=== PATIENT | female | born 2000 | race Caucasian/White ===

== ENCOUNTER 2022-12-04 15:50 | Inpatient (IN) | payer SELFPAY, OTHER ==
[2022-12-04] VITALS (94 sets, daily range): BP systolic 112–184; BP diastolic 64–111; PULSE 60–184; RESP 16; TEMP 36.6–37.1; O2SAT 83–100; BMI 32.1
[2022-12-04] MEDS: Lactated Ringers 1,000 ML 50 ML IV (16:55)
[2022-12-04 17:14] LABS: Absolute Lymphocyte Count 1.42 X10^3/uL (0.83-4.51); Absolute Neutrophil Count 11.9 X10^3/uL (2.0-7.7); Basophil# 0.03 X10^3/uL; Basophil% 0.2 % (0-1); Eosinophil# 0.04 X10^3/uL; Eosinophils% 0.3 % (0-5); Hematocrit 35.3 % (37-47); Hemoglobin 11.9 g/dL (12.0-15.0); Lymphocyte # 1.42 X10^3/ul (0.83-4.51); Lymphocyte % 9.3 % (19-41); Mean Corp Hgb Conc 33.7 g/dL (32-36); Mean Corpuscular Hgb 29.8 pg (27.0-32.0); Mean Corpuscular Volume 88.3 fL (81-99); Mean Platelet Vol. 10.2 fl (6.2-12.0); Monocyte# 1.64 X10^3/uL; Monocyte% 10.8 % (0-10); NRBC Flagged by Analyzer 0 % (0-5); Neutrophil # 11.94 X10^3/uL (2.7-7.7); Neutrophil % 78.5 % (47-70); POSITIVE DIFFERENTIAL YES; Platelet Count 220 K/mm3 (150-450); RBC Distribution Width CV 12.8 % (11.6-14.6); RBC Distribution Width SD 41.7 fl (35.1-43.9); White Blood Count 15.2 K/mm3 (4.4-11.0)
[2022-12-04 17:17] LABS: Differential Indicated SCAN CRITERIA MET
[2022-12-04 17:38] LABS: Differential Comment SCANNED
[2022-12-04] MEDS: Oxytocin 15 Units/NS 250ml 15 UNITS/250 ML IV.SOLN 2 UNITS IV (17:55)
[2022-12-04] MEDS: 0.9% Normal Saline Single 100 ML IV.SOLN. INTRA-UTER (17:55)
[2022-12-04 17:59] LABS: AST(SGOT) 35 U/L (15-37); Alanine Aminotransfer ALT/SGPT 48 U/L (13-56); Creatinine, Serum 0.54 mg/dL (0.55-1.02); EST Glomerular Filtration Rate 148 mL/min (>60); Est Glom Filt Rate - Afr Amer 179 mL/min (>60); Estimated Creatinine Clearance 122.27 ml/min
[2022-12-04 18:05] LABS: Mucous, Urine 0 SEEN /hpf (<or=2+)
[2022-12-04 18:17] LABS: Color, Urine Yellow (Yellow); Glucose, Dipstick Normal (Normal); Ketone-Dipstick Negative (Negative); Leukocyte Esterase-Dipstick 500 /ul (Negative); Nitrite-Dipstick Negative (Negative); Occult Blood-Urine 250 /ul (Negative); Protein-Dipstick 100 mg/dl (Negative); Urine Bilirubin Dipstick Negative (Negative); Urine Clarity Sl. Cloudy (Clear); Urine Urobilinogen Normal (Normal); Urine pH 6.5 (5.0 - 8.0)
[2022-12-04 18:24] LABS: Protein, Urine (Random) 174.6 mg/dL (<11.9); Protein:Creat Ratio 7462 mg/g CRE (0-200)
[2022-12-04] MEDS: Labetalol (Prefilled) 20 MG/4 ML IV (18:42)
[2022-12-04] MEDS: Magnesium Sulfate 4gm/100mL 4 GM/100 ML IV.SOLN. IV (18:47)
[2022-12-04 18:59] LABS: HIV - WCH Non-Reactive (Nonreactive); Rubella IgG Non-Reactive (Nonreactive); Syphilis Antibodies Non-reactive
[2022-12-04 19:06] LABS: Bacteria RARE /hpf (None Seen); Red Blood Cells-Urine 25-50 SEEN /hpf (0-5); Squamous Epithelial Cells - UA 0-5 SEEN /hpf (5-10); White Blood Cells 25-50 SEEN /hpf (0-5)
[2022-12-04 19:07] LABS: Amorphous Sediment 1+ URATE
[2022-12-04] MEDS: Magnesium Sulfate 20 GM/500 ML BAG IV (19:08)
[2022-12-04 20:54] LABS: Group B Strep DNA By PCR Negative (Negative); Internal Control PASS; Probe Check PASS; Specimen Processing Control PASS
[2022-12-04] MEDS: Labetalol 100 MG Tablet PO (21:07)
[2022-12-04] MEDS: LACTATED RINGERS 500 ML 999 ML IV (21:47)
[2022-12-04 22:08] LABS: Hepatitis B Surface Antigen Non-Reactive (Nonreactive); Hepatitis C Antibody Non-Reactive (Nonreactive)
[2022-12-04] MEDS: fentaNYL-bupivacaine (epidural) 100 ML BAG EPIDURAL (23:02)
[2022-12-05] VITALS (133 sets, daily range): BP systolic 106–152; BP diastolic 54–95; PULSE 70–106; RESP 14–18; TEMP 36.6–37.8; O2SAT 88–100
[2022-12-05] MEDS: fentaNYL-bupivacaine (epidural) 100 ML BAG EPIDURAL (03:16)
[2022-12-05] MEDS: Magnesium Sulfate 20 GM/500 ML BAG IV ×2 (04:43→14:16)
--- NOTE | 2022-12-05 05:20 | PLAC_PTH ---
PATIENT: LYNSEY CROWLEY LOC: [facility] U#:[id number] AGE/SX: ROOM: WP014 RE12/04/[address]: Dr. Jocelyne Adan MD : 2000 BED: 1 DIS: 12/06/2022 SPEC #: [id number] RECD: 12/07/22 08:45 STATUS: TIMOTHY COSTA #: [id number] VELASQUEZ: 12/05/22 05:[address]: Jocelyne Adan DEPT: SURGICAL PATHOLOGY RECD BY: Nicolle Montague Tissues: Placenta, NOS Procedures: Surgery Specimen Level V HEADER OPERATION: Delivery PRE-OP DIAGNOSIS: Delivery TISSUE SUBMITTED: Placenta MICROSCOPIC DIAGNOSIS Placenta: Placental disc - third trimester placenta (422 gm). - focal area of peripheral infarction (3.5 cm in greatest dimension). Membranes - circummarginate insertion. Umbilical cord - three blood vessels and no pathologic diagnosis. SJ: 12/08/2022 MICROSCOPIC DESCRIPTION Slides are reviewed. GROSS DESCRIPTION SPECIMEN: PLACENTA / CLINICAL INFORMATION: A. Weight: 3.555 kg B. Gestational Age: 37 weeks C. Sex: Boy PLACENTAL WEIGHT (POST FIXATION): 422 gm PLACENTAL DIMENSIONS: 16 x 15 x 3 cm PLACENTAL SHAPE: Usual ovoid PLACENTAL WEIGHT FOR GESTATIONAL AGE: Within 10-99th percentile. MEMBRANES - Present A. Insertion: 2 -3 cm away from the margins in 2/3rd circumference of the placenta. B. Site of rupture from edge: at the edge of the placental disc C. Color of membrane: Deleon-lombardi D. Abnormalities: None UMBILICAL CORD - Present A. Color: Deleon-lombardi B. Insertion: Marginal C. Length: 47 cm D. Diameter: 1.0cm E. Number of vessels: Three F. Abnormalities: None PLACENTAL DISC - Present A. Color of surface: Deleon-lombardi B. surface abnormalities: None C. Maternal cotyledons: Intact with minimal tears D. Attached retro placental clot: No clot E. Cut surface: Dark red and spongy F. Lesions: one deleon indurated lesion in the peripheral portion of placenta measuring 3.5 cm in greatest dimension. G. Separate clot: Absent SECTIONS SUBMITTED: 1. Membrane roll 2. Cord, maternal end, insertion of membranes away from the margin. 3. Cord, end, insertion of membranes away from the margin 4. Placental disc, and maternal surfaces 5. Placental disc, and maternal surfaces 6. Placental disc, and maternal surfaces, lesion SJ: 12/07/22 TC:5 CPT: 24549
[2022-12-05] MEDS: Oxytocin 10 UNITS/ML Vial IM (05:26)
[2022-12-05] MEDS: miSOPROStol 200 MCG Tablet 1000 MCG RC (05:32)
[2022-12-05] MEDS: Carboprost Tromethamine 250 MCG/ML Ampul IM (05:39)
[2022-12-05] MEDS: Oxytocin 15 Units/NS 250ml 15 UNITS/250 ML IV.SOLN 83 UNITS IV (05:49)
--- NOTE | 2022-12-05 06:19 | PCM.HP.OB ---
HPI - General General Date of Admission: 12/04/22 HPI Narrative LYNSEY CROWLEY, is a 22 F who presents with elevated blood pressure and proteinuria, presenting from a nearby birthing center. she had severe edema and headache, 7.5g of protein in her urine. she had bps elevated 140-150 over 100s at the birthing center, this just started yesterday. Upon presentation her fundal height was low and her VICENTE was under 1 cm with oligohydramnios [facility] Medical History (Updated 12/05/22 @ 06:[address] Jocelyne Adan MD) Anemia affecting first Psychiatric disorder Home Medications ascorbate calcium (vitamin C) 500 mg tablet 500 mg PO DAILY supplement 12/04/22 [History Last Taken 12/03/22 05:00] docosahexaenoic acid 1 cap PO DAILY 12/04/22 [History Last Taken 12/03/22 05:00] hemaplex 1 tab PO DAILY anemia 12/04/22 [History Last Taken 12/03/22 05:00] magnesium oxide 400 mg (241.3 mg magnesium) tablet 400 mg PO DAILY supplement 12/04/22 [History Last Taken 12/03/22 05:00] omega-3 fatty acids 1 tab PO DAILY supplement 12/04/22 [History Last Taken 12/03/22 05:00] thiamine HCl (vitamin B1) 100 mg tablet 100 mg PO DAILY supplement 12/04/22 [History Last Taken 12/03/22 05:00] Allergy/AdvReac Type Severity Reaction Status Date / Time No Known Allergies Allergy Verified 12/04/22 17:05 Family History (Updated 12/04/22 @ 17:24 by Mouna Pérez) Grandmother Diabetes Grandfather Hypertension Sister Heart disease Surgical History no surgical history Social History Smoking Status: Never smoker History Elective abortions Hx Para 0 Spontaneous abortions Hx # Term Pregnancies Ectopic pregnancies Hx # Pregnancies Multiple births # of living children NST FHR Rate Baby A Baseline: 130 Variability:: Moderate Accelerations:: 15 x 15 Decelerations:: None NST Reactive:: Yes FHR Category:: Category I Uterine Activity:: irregular ROS Constitutional Constitutional: Reports systems reviewed and no addt'l complaints, except as documented Eyes Eyes: Denies change in vision ENT HEENT: Reports systems reviewed and no addt'l complaints, except as documented; Denies headache(s) Cardiovascular Cardiovascular: Reports systems reviewed and no addt'l complaints, except as documented; Denies chest pain or dyspnea Respiratory/Chest Respiratory/Chest: Reports systems reviewed and no addt'l complaints, except as documented Gastrointestinal Gastrointestinal: Reports systems reviewed and no addt'l complaints, except as documented; Denies abdominal pain Genitourinary Genitourinary: Reports systems reviewed and no addt'l complaints, except as documented, contractions Details: present (irregular) and movement Details: present; Denies dysuria or genital lesions Musculoskeletal Musculoskeletal: Reports systems reviewed and no addt'l complaints, except as documented Neurologic Neurologic: Reports systems reviewed and no addt'l complaints, except as documented Endocrine Endocrinology: Reports systems reviewed and no addt'l complaints, except as documented Vital Signs Vital Signs Vital Signs: 12/04/22 17:06 12/04/22 17:06 12/04/22 17:21 Temperature Temperature Source Pulse Rate 60 Respiratory Rate Respiratory Effort Respiratory Depth Respiratory Pattern Blood Pressure 147/97 H 154/100 H Blood Pressure Mean BP Systolic 147 154 BP Diastolic 97 100 Blood Pressure Source Blood Pressure Position Blood Pressure Location Pulse Ox Oxygen Delivery Method 12/04/22 17:21 12/04/22 17:21 12/04/22 17:21 Temperature Temperature Source Temporal Pulse Rate 60 Respiratory Rate Respiratory Effort Respiratory Depth Respiratory Pattern Blood Pressure Blood Pressure Mean BP Systolic BP Diastolic Blood Pressure Source Blood Pressure Position Blood Pressure Location Pulse Ox 98 Oxygen Delivery Method 12/04/22 17:21 12/04/22 17:53 12/04/22 17:53 Temperature 98.1 F Temperature Source Pulse Rate 67 Respiratory Rate Respiratory Effort Respiratory Depth Respiratory Pattern Blood Pressure 184/111 H Blood Pressure Mean BP Systolic 184 BP Diastolic 111 Blood Pressure Source Blood Pressure Position Blood Pressure Location Pulse Ox Oxygen Delivery Method 12/04/22 18:06 12/04/22 18:06 12/04/22 18:22 Temperature Temperature Source Pulse Rate 63 Respiratory Rate Respiratory Effort Respiratory Depth Respiratory Pattern Blood Pressure 172/98 H 167/94 H Blood Pressure Mean BP Systolic 172 167 BP Diastolic 98 94 Blood Pressure Source Blood Pressure Position Blood Pressure Location Pulse Ox Oxygen Delivery Method 12/04/22 18:22 12/04/22 18:37 12/04/22 18:37 Temperature Temperature Source Pulse Rate 66 71 Respiratory Rate Respiratory Effort Respiratory Depth Respiratory Pattern Blood Pressure 168/97 H Blood Pressure Mean BP Systolic 168 BP Diastolic 97 Blood Pressure Source Blood Pressure Position Blood Pressure Location Pulse Ox Oxygen Delivery Method 12/04/22 18:55 12/04/22 18:55 12/04/22 18:58 Temperature Temperature Source Pulse Rate 77 Respiratory Rate Respiratory Effort Respiratory Depth Respiratory Pattern Blood Pressure 139/84 H Blood Pressure Mean BP Systolic 139 BP Diastolic 84 Blood Pressure Source Blood Pressure Position Blood Pressure Location Pulse Ox 98 Oxygen Delivery Method 12/04/22 18:58 12/04/22 19:00 12/04/22 19:00 Temperature Temperature Source Pulse Rate 82 81 Respiratory Rate Respiratory Effort Respiratory Depth Respiratory Pattern Blood Pressure Blood Pressure Mean BP Systolic BP Diastolic Blood Pressure Source Blood Pressure Position Blood Pressure Location Pulse Ox 98 Oxygen Delivery Method 12/04/22 19:05 12/04/22 19:05 12/04/22 19:07 Temperature Temperature Source Pulse Rate 77 Respiratory Rate Respiratory Effort Respiratory Depth Respiratory Pattern Blood Pressure 127/73 H Blood Pressure Mean BP Systolic 127 BP Diastolic 73 Blood Pressure Source Blood Pressure Position Blood Pressure Location Pulse Ox 98 Oxygen Delivery Method 12/04/22 19:07 12/04/22 19:10 12/04/22 19:10 Temperature Temperature Source Pulse Rate 71 78 Respiratory Rate Respiratory Effort Respiratory Depth Respiratory Pattern Blood Pressure Blood Pressure Mean BP Systolic BP Diastolic Blood Pressure Source Blood Pressure Position Blood Pressure Location Pulse Ox 98 Oxygen Delivery Method 12/04/22 19:15 12/04/22 19:15 12/04/22 19:19 Temperature Temperature Source Pulse Rate 79 Respiratory Rate Respiratory Effort Respiratory Depth Respiratory Pattern Blood Pressure 136/80 H Blood Pressure Mean BP Systolic 136 BP Diastolic 80 Blood Pressure Source Blood Pressure Position Blood Pressure Location Pulse Ox 98 Oxygen Delivery Method 12/04/22 19:19 12/04/22 19:20 12/04/22 19:20 Temperature Temperature Source Pulse Rate 76 77 Respiratory Rate Respiratory Effort Respiratory Depth Respiratory Pattern Blood Pressure Blood Pressure Mean BP Systolic BP Diastolic Blood Pressure Source Blood Pressure Position Blood Pressure Location Pulse Ox 98 Oxygen Delivery Method 12/04/22 19:25 12/04/22 19:25 12/04/22 19:27 Temperature Temperature Source Pulse Rate 77 Respiratory Rate Respiratory Effort Respiratory Depth Respiratory Pattern Blood Pressure 130/80 H Blood Pressure Mean BP Systolic 130 BP Diastolic 80 Blood Pressure Source Blood Pressure Position Blood Pressure Location Pulse Ox 98 Oxygen Delivery Method 12/04/22 19:27 12/04/22 19:30 12/04/22 19:30 Temperature Temperature Source Pulse Rate 75 78 Respiratory Rate Respiratory Effort Respiratory Depth Respiratory Pattern Blood Pressure Blood Pressure Mean BP Systolic BP Diastolic Blood Pressure Source Blood Pressure Position Blood Pressure Location Pulse Ox 98 Oxygen Delivery Method 12/04/22 19:35 12/04/22 19:35 12/04/22 19:38 Temperature Temperature Source Pulse Rate 79 Respiratory Rate Respiratory Effort Respiratory Depth Respiratory Pattern Blood Pressure 141/82 H Blood Pressure Mean BP Systolic 141 BP Diastolic 82 Blood Pressure Source Blood Pressure Position Blood Pressure Location Pulse Ox 98 Oxygen Delivery Method 12/04/22 19:38 12/04/22 19:38 12/04/22 19:38 Temperature Temperature Source Pulse Rate 75 74 Respiratory Rate Respiratory Effort Respiratory Depth Respiratory Pattern Blood Pressure 134/83 H Blood Pressure Mean BP Systolic 134 BP Diastolic 83 Blood Pressure Source Blood Pressure Position Blood Pressure Location Pulse Ox Oxygen Delivery Method 12/04/22 19:40 12/04/22 19:40 12/04/22 19:50 Temperature Temperature Source Pulse Rate 79 Respiratory Rate Respiratory Effort Respiratory Depth Respiratory Pattern Blood Pressure 153/97 H Blood Pressure Mean BP Systolic 153 BP Diastolic 97 Blood Pressure Source Blood Pressure Position Blood Pressure Location Pulse Ox 98 Oxygen Delivery Method 12/04/22 19:50 12/04/22 19:53 12/04/22 19:53 Temperature Temperature Source Pulse Rate 75 71 Respiratory Rate Respiratory Effort Respiratory Depth Respiratory Pattern Blood Pressure Blood Pressure Mean BP Systolic BP Diastolic Blood Pressure Source Blood Pressure Position Blood Pressure Location Pulse Ox 98 Oxygen Delivery Method 12/04/22 19:58 12/04/22 19:58 12/04/22 20:03 Temperature Temperature Source Pulse Rate 76 77 Respiratory Rate Respiratory Effort Respiratory Depth Respiratory Pattern Blood Pressure Blood Pressure Mean BP Systolic BP Diastolic Blood Pressure Source Blood Pressure Position Blood Pressure Location Pulse Ox 98 Oxygen Delivery Method 12/04/22 20:03 12/04/22 20:27 12/04/22 20:27 Temperature Temperature Source Pulse Rate 72 Respiratory Rate Respiratory Effort Respiratory Depth Respiratory Pattern Blood Pressure 133/82 H Blood Pressure Mean BP Systolic 133 BP Diastolic 82 Blood Pressure Source Blood Pressure Position Blood Pressure Location Pulse Ox 98 Oxygen Delivery Method 12/04/22 20:27 12/04/22 20:29 12/04/22 20:29 Temperature Temperature Source Temporal Pulse Rate 78 Respiratory Rate Respiratory Effort Respiratory Depth Respiratory Pattern Blood Pressure Blood Pressure Mean BP Systolic BP Diastolic Blood Pressure Source Blood Pressure Position Blood Pressure Location Pulse Ox 99 Oxygen Delivery Method 12/04/22 20:27 12/04/22 20:34 12/04/22 20:34 Temperature 98.7 F Temperature Source Pulse Rate 74 Respiratory Rate Respiratory Effort Respiratory Depth Respiratory Pattern Blood Pressure Blood Pressure Mean BP Systolic BP Diastolic Blood Pressure Source Blood Pressure Position Blood Pressure Location Pulse Ox 87 Oxygen Delivery Method 12/04/22 20:39 12/04/22 20:39 12/04/22 20:40 Temperature Temperature Source Pulse Rate 74 74 Respiratory Rate Respiratory Effort Respiratory Depth Respiratory Pattern Blood Pressure Blood Pressure Mean BP Systolic BP Diastolic Blood Pressure Source Blood Pressure Position Blood Pressure Location Pulse Ox 100 Oxygen Delivery Method 12/04/22 20:40 12/04/22 20:44 12/04/22 20:44 Temperature Temperature Source Pulse Rate 74 Respiratory Rate Respiratory Effort Respiratory Depth Respiratory Pattern Blood Pressure Blood Pressure Mean BP Systolic BP Diastolic Blood Pressure Source Blood Pressure Position Blood Pressure Location Pulse Ox 85 100 Oxygen Delivery Method 12/04/22 20:49 12/04/22 20:49 12/04/22 20:53 Temperature Temperature Source Pulse Rate 74 76 Respiratory Rate Respiratory Effort Respiratory Depth Respiratory Pattern Blood Pressure Blood Pressure Mean BP Systolic BP Diastolic Blood Pressure Source Blood Pressure Position Blood Pressure Location Pulse Ox 100 Oxygen Delivery Method 12/04/22 20:53 12/04/22 20:54 12/04/22 20:54 Temperature Temperature Source Pulse Rate 184 H Respiratory Rate Respiratory Effort Respiratory Depth Respiratory Pattern Blood Pressure Blood Pressure Mean BP Systolic BP Diastolic Blood Pressure Source Blood Pressure Position Blood Pressure Location Pulse Ox 89 83 Oxygen Delivery Method 12/04/22 20:59 12/04/22 20:59 12/04/22 21:05 Temperature Temperature Source Pulse Rate 75 73 Respiratory Rate Respiratory Effort Respiratory Depth Respiratory Pattern Blood Pressure Blood Pressure Mean BP Systolic BP Diastolic Blood Pressure Source Blood Pressure Position Blood Pressure Location Pulse Ox 99 Oxygen Delivery Method 12/04/22 21:05 12/04/22 21:07 12/04/22 21:07 Temperature Temperature Source Pulse Rate 73 Respiratory Rate Respiratory Effort Respiratory Depth Respiratory Pattern Blood Pressure 136/88 H Blood Pressure Mean BP Systolic 136 BP Diastolic 88 Blood Pressure Source Blood Pressure Position Blood Pressure Location Pulse Ox 99 Oxygen Delivery Method 12/04/22 21:11 12/04/22 21:11 12/04/22 21:15 Temperature Temperature Source Pulse Rate 72 80 Respiratory Rate Respiratory Effort Respiratory Depth Respiratory Pattern Blood Pressure Blood Pressure Mean BP Systolic BP Diastolic Blood Pressure Source Blood Pressure Position Blood Pressure Location Pulse Ox 89 Oxygen Delivery Method 12/04/22 21:15 12/04/22 21:18 12/04/22 21:18 Temperature Temperature Source Pulse Rate 77 Respiratory Rate Respiratory Effort Respiratory Depth Respiratory Pattern Blood Pressure Blood Pressure Mean BP Systolic BP Diastolic Blood Pressure Source Blood Pressure Position Blood Pressure Location Pulse Ox 99 88 Oxygen Delivery Method 12/04/22 21:20 12/04/22 21:20 12/04/22 21:24 Temperature Temperature Source Pulse Rate 73 Respiratory Rate Respiratory Effort Respiratory Depth Respiratory Pattern Blood Pressure 143/91 H Blood Pressure Mean BP Systolic 143 BP Diastolic 91 Blood Pressure Source Blood Pressure Position Blood Pressure Location Pulse Ox 100 Oxygen Delivery Method 12/04/22 21:24 12/04/22 21:25 12/04/22 21:25 Temperature Temperature Source Pulse Rate 71 79 Respiratory Rate Respiratory Effort Respiratory Depth Respiratory Pattern Blood Pressure Blood Pressure Mean BP Systolic BP Diastolic Blood Pressure Source Blood Pressure Position Blood Pressure Location Pulse Ox 99 Oxygen Delivery Method 12/04/22 21:30 12/04/22 21:30 12/04/22 21:35 Temperature Temperature Source Pulse Rate 74 74 Respiratory Rate Respiratory Effort Respiratory Depth Respiratory Pattern Blood Pressure Blood Pressure Mean BP Systolic BP Diastolic Blood Pressure Source Blood Pressure Position Blood Pressure Location Pulse Ox 98 Oxygen Delivery Method 12/04/22 21:35 12/04/22 21:36 12/04/22 21:36 Temperature Temperature Source Pulse Rate 79 Respiratory Rate Respiratory Effort Respiratory Depth Respiratory Pattern Blood Pressure Blood Pressure Mean BP Systolic BP Diastolic Blood Pressure Source Blood Pressure Position Blood Pressure Location Pulse Ox 100 83 Oxygen Delivery Method 12/04/22 21:40 12/04/22 21:40 12/04/22 21:42 Temperature Temperature Source Pulse Rate 80 84 Respiratory Rate Respiratory Effort Respiratory Depth Respiratory Pattern Blood Pressure Blood Pressure Mean BP Systolic BP Diastolic Blood Pressure Source Blood Pressure Position Blood Pressure Location Pulse Ox 100 Oxygen Delivery Method 12/04/22 21:42 12/04/22 21:45 12/04/22 21:45 Temperature Temperature Source Pulse Rate 76 Respiratory Rate Respiratory Effort Respiratory Depth Respiratory Pattern Blood Pressure Blood Pressure Mean BP Systolic BP Diastolic Blood Pressure Source Blood Pressure Position Blood Pressure Location Pulse Ox 91 100 Oxygen Delivery Method 12/04/22 21:49 12/04/22 21:49 12/04/22 21:50 Temperature Temperature Source Pulse Rate 77 77 Respiratory Rate Respiratory Effort Respiratory Depth Respiratory Pattern Blood Pressure Blood Pressure Mean BP Systolic BP Diastolic Blood Pressure Source Blood Pressure Position Blood Pressure Location Pulse Ox 87 Oxygen Delivery Method 12/04/22 21:50 12/04/22 21:55 12/04/22 21:55 Temperature Temperature Source Pulse Rate 78 Respiratory Rate Respiratory Effort Respiratory Depth Respiratory Pattern Blood Pressure Blood Pressure Mean BP Systolic BP Diastolic Blood Pressure Source Blood Pressure Position Blood Pressure Location Pulse Ox 99 96 Oxygen Delivery Method 12/04/22 21:58 12/04/22 21:58 12/04/22 22:00 Temperature Temperature Source Pulse Rate 80 78 Respiratory Rate Respiratory Effort Respiratory Depth Respiratory Pattern Blood Pressure Blood Pressure Mean BP Systolic BP Diastolic Blood Pressure Source Blood Pressure Position Blood Pressure Location Pulse Ox 92 Oxygen Delivery Method 12/04/22 22:00 12/04/22 22:05 12/04/22 22:05 Temperature Temperature Source Pulse Rate 79 Respiratory Rate Respiratory Effort Respiratory Depth Respiratory Pattern Blood Pressure Blood Pressure Mean BP Systolic BP Diastolic Blood Pressure Source Blood Pressure Position Blood Pressure Location Pulse Ox 99 98 Oxygen Delivery Method 12/04/22 22:06 12/04/22 22:06 12/04/22 22:10 Temperature Temperature Source Pulse Rate 74 76 Respiratory Rate Respiratory Effort Respiratory Depth Respiratory Pattern Blood Pressure Blood Pressure Mean BP Systolic BP Diastolic Blood Pressure Source Blood Pressure Position Blood Pressure Location Pulse Ox 90 Oxygen Delivery Method 12/04/22 22:10 12/04/22 22:15 12/04/22 22:15 Temperature Temperature Source Pulse Rate 73 Respiratory Rate Respiratory Effort Respiratory Depth Respiratory Pattern Blood Pressure Blood Pressure Mean BP Systolic BP Diastolic Blood Pressure Source Blood Pressure Position Blood Pressure Location Pulse Ox 97 98 Oxygen Delivery Method 12/04/22 22:20 12/04/22 22:20 12/04/22 22:23 Temperature Temperature Source Pulse Rate 75 78 Respiratory Rate Respiratory Effort Respiratory Depth Respiratory Pattern Blood Pressure Blood Pressure Mean BP Systolic BP Diastolic Blood Pressure Source Blood Pressure Position Blood Pressure Location Pulse Ox 99 Oxygen Delivery Method 12/04/22 22:23 12/04/22 22:25 12/04/22 22:25 Temperature Temperature Source Pulse Rate 75 Respiratory Rate Respiratory Effort Respiratory Depth Respiratory Pattern Blood Pressure 157/96 H Blood Pressure Mean BP Systolic 157 BP Diastolic 96 Blood Pressure Source Blood Pressure Position Blood Pressure Location Pulse Ox 90 Oxygen Delivery Method 12/04/22 22:25 12/04/22 22:30 12/04/22 22:30 Temperature Temperature Source Pulse Rate 80 Respiratory Rate Respiratory Effort Respiratory Depth Respiratory Pattern Blood Pressure Blood Pressure Mean BP Systolic BP Diastolic Blood Pressure Source Blood Pressure Position Blood Pressure Location Pulse Ox 98 99 Oxygen Delivery Method 12/04/22 22:39 12/04/22 22:39 12/04/22 22:41 Temperature Temperature Source Pulse Rate 86 Respiratory Rate Respiratory Effort Respiratory Depth Respiratory Pattern Blood Pressure 134/86 H Blood Pressure Mean BP Systolic 134 BP Diastolic 86 Blood Pressure Source Blood Pressure Position Blood Pressure Location Pulse Ox 98 Oxygen Delivery Method 12/04/22 22:41 12/04/22 22:44 12/04/22 22:44 Temperature Temperature Source Pulse Rate 78 85 Respiratory Rate Respiratory Effort Respiratory Depth Respiratory Pattern Blood Pressure Blood Pressure Mean BP Systolic BP Diastolic Blood Pressure Source Blood Pressure Position Blood Pressure Location Pulse Ox 98 Oxygen Delivery Method 12/04/22 22:47 12/04/22 22:47 12/04/22 22:49 Temperature Temperature Source Pulse Rate 84 85 Respiratory Rate Respiratory Effort Respiratory Depth Respiratory Pattern Blood Pressure 146/90 H Blood Pressure Mean BP Systolic 146 BP Diastolic 90 Blood Pressure Source Blood Pressure Position Blood Pressure Location Pulse Ox Oxygen Delivery Method 12/04/22 22:49 12/04/22 22:52 12/04/22 22:52 Temperature Temperature Source Pulse Rate 82 Respiratory Rate Respiratory Effort Respiratory Depth Respiratory Pattern Blood Pressure 134/87 H Blood Pressure Mean BP Systolic 134 BP Diastolic 87 Blood Pressure Source Blood Pressure Position Blood Pressure Location Pulse Ox 98 Oxygen Delivery Method 12/04/22 22:54 12/04/22 22:54 12/04/22 22:57 Temperature Temperature Source Pulse Rate 91 Respiratory Rate Respiratory Effort Respiratory Depth Respiratory Pattern Blood Pressure 137/90 H Blood Pressure Mean BP Systolic 137 BP Diastolic 90 Blood Pressure Source Blood Pressure Position Blood Pressure Location Pulse Ox 99 Oxygen Delivery Method 12/04/22 22:57 12/04/22 22:59 12/04/22 22:59 Temperature Temperature Source Pulse Rate 83 84 Respiratory Rate Respiratory Effort Respiratory Depth Respiratory Pattern Blood Pressure Blood Pressure Mean BP Systolic BP Diastolic Blood Pressure Source Blood Pressure Position Blood Pressure Location Pulse Ox 95 Oxygen Delivery Method 12/04/22 23:02 12/04/22 23:02 12/04/22 23:04 Temperature Temperature Source Pulse Rate 73 74 Respiratory Rate Respiratory Effort Respiratory Depth Respiratory Pattern Blood Pressure 134/74 H Blood Pressure Mean BP Systolic 134 BP Diastolic 74 Blood Pressure Source Blood Pressure Position Blood Pressure Location Pulse Ox Oxygen Delivery Method 12/04/22 23:04 12/04/22 23:06 12/04/22 23:06 Temperature Temperature Source Pulse Rate 75 Respiratory Rate Respiratory Effort Respiratory Depth Respiratory Pattern Blood Pressure 123/68 H Blood Pressure Mean BP Systolic 123 BP Diastolic 68 Blood Pressure Source Blood Pressure Position Blood Pressure Location Pulse Ox 98 Oxygen Delivery Method 12/04/22 23:09 12/04/22 23:09 12/04/22 23:12 Temperature Temperature Source Pulse Rate 78 Respiratory Rate Respiratory Effort Respiratory Depth Respiratory Pattern Blood Pressure 112/66 Blood Pressure Mean BP Systolic 112 BP Diastolic 66 Blood Pressure Source Blood Pressure Position Blood Pressure Location Pulse Ox 98 Oxygen Delivery Method 12/04/22 23:12 12/04/22 23:14 12/04/22 23:14 Temperature Temperature Source Pulse Rate 76 76 Respiratory Rate Respiratory Effort Respiratory Depth Respiratory Pattern Blood Pressure Blood Pressure Mean BP Systolic BP Diastolic Blood Pressure Source Blood Pressure Position Blood Pressure Location Pulse Ox 99 Oxygen Delivery Method 12/04/22 23:17 12/04/22 23:17 12/04/22 23:19 Temperature Temperature Source Pulse Rate 71 78 Respiratory Rate Respiratory Effort Respiratory Depth Respiratory Pattern Blood Pressure 113/64 Blood Pressure Mean BP Systolic 113 BP Diastolic 64 Blood Pressure Source Blood Pressure Position Blood Pressure Location Pulse Ox Oxygen Delivery Method 12/04/22 23:19 12/04/22 23:22 12/04/22 23:22 Temperature Temperature Source Pulse Rate 79 Respiratory Rate Respiratory Effort Respiratory Depth Respiratory Pattern Blood Pressure 120/69 Blood Pressure Mean BP Systolic 120 BP Diastolic 69 Blood Pressure Source Blood Pressure Position Blood Pressure Location Pulse Ox 97 Oxygen Delivery Method 12/04/22 23:23 12/04/22 23:23 12/04/22 23:24 Temperature Temperature Source Pulse Rate 75 76 Respiratory Rate Respiratory Effort Respiratory Depth Respiratory Pattern Blood Pressure 131/74 H Blood Pressure Mean BP Systolic 131 BP Diastolic 74 Blood Pressure Source Blood Pressure Position Blood Pressure Location Pulse Ox Oxygen Delivery Method 12/04/22 23:24 12/04/22 23:27 12/04/22 23:27 Temperature Temperature Source Pulse Rate 74 Respiratory Rate Respiratory Effort Respiratory Depth Respiratory Pattern Blood Pressure 126/75 H Blood Pressure Mean BP Systolic 126 BP Diastolic 75 Blood Pressure Source Blood Pressure Position Blood Pressure Location Pulse Ox 98 Oxygen Delivery Method 12/04/22 23:29 12/04/22 23:29 12/04/22 23:32 Temperature Temperature Source Pulse Rate 76 Respiratory Rate Respiratory Effort Respiratory Depth Respiratory Pattern Blood Pressure 127/74 H Blood Pressure Mean BP Systolic 127 BP Diastolic 74 Blood Pressure Source Blood Pressure Position Blood Pressure Location Pulse Ox 98 Oxygen Delivery Method 12/04/22 23:32 12/04/22 23:34 12/04/22 23:34 Temperature Temperature Source Pulse Rate 72 75 Respiratory Rate Respiratory Effort Respiratory Depth Respiratory Pattern Blood Pressure Blood Pressure Mean BP Systolic BP Diastolic Blood Pressure Source Blood Pressure Position Blood Pressure Location Pulse Ox 97 Oxygen Delivery Method 12/04/22 23:37 12/04/22 23:37 12/04/22 23:39 Temperature Temperature Source Pulse Rate 75 74 Respiratory Rate Respiratory Effort Respiratory Depth Respiratory Pattern Blood Pressure 130/75 H Blood Pressure Mean BP Systolic 130 BP Diastolic 75 Blood Pressure Source Blood Pressure Position Blood Pressure Location Pulse Ox Oxygen Delivery Method 12/04/22 23:39 12/04/22 23:44 12/04/22 23:44 Temperature Temperature Source Pulse Rate 74 Respiratory Rate Respiratory Effort Respiratory Depth Respiratory Pattern Blood Pressure Blood Pressure Mean BP Systolic BP Diastolic Blood Pressure Source Blood Pressure Position Blood Pressure Location Pulse Ox 97 98 Oxygen Delivery Method 12/04/22 23:49 12/04/22 23:49 12/04/22 23:54 Temperature Temperature Source Pulse Rate 76 77 Respiratory Rate Respiratory Effort Respiratory Depth Respiratory Pattern Blood Pressure Blood Pressure Mean BP Systolic BP Diastolic Blood Pressure Source Blood Pressure Position Blood Pressure Location Pulse Ox 97 Oxygen Delivery Method 12/04/22 23:54 12/04/22 23:59 12/04/22 23:59 Temperature Temperature Source Pulse Rate 76 Respiratory Rate Respiratory Effort Respiratory Depth Respiratory Pattern Blood Pressure Blood Pressure Mean BP Systolic BP Diastolic Blood Pressure Source Blood Pressure Position Blood Pressure Location Pulse Ox 96 96 Oxygen Delivery Method 12/05/22 00:00 12/05/22 00:00 12/05/22 00:04 Temperature Temperature Source Pulse Rate 77 75 Respiratory Rate Respiratory Effort Respiratory Depth Respiratory Pattern Blood Pressure 116/74 Blood Pressure Mean BP Systolic 116 BP Diastolic 74 Blood Pressure Source Blood Pressure Position Blood Pressure Location Pulse Ox Oxygen Delivery Method 12/05/22 00:04 12/05/22 00:04 12/05/22 00:04 Temperature Temperature Source Pulse Rate 75 Respiratory Rate Respiratory Effort Respiratory Depth Respiratory Pattern Blood Pressure Blood Pressure Mean BP Systolic BP Diastolic Blood Pressure Source Blood Pressure Position Blood Pressure Location Pulse Ox 96 96 Oxygen Delivery Method 12/05/22 00:09 12/05/22 00:09 12/05/22 00:09 Temperature Temperature Source Pulse Rate 77 77 Respiratory Rate Respiratory Effort Respiratory Depth Respiratory Pattern Blood Pressure Blood Pressure Mean BP Systolic BP Diastolic Blood Pressure Source Blood Pressure Position Blood Pressure Location Pulse Ox 95 Oxygen Delivery Method 12/05/22 00:09 12/05/22 00:11 12/05/22 00:11 Temperature Temperature Source Pulse Rate 76 76 Respiratory Rate Respiratory Effort Respiratory Depth Respiratory Pattern Blood Pressure Blood Pressure Mean BP Systolic BP Diastolic Blood Pressure Source Blood Pressure Position Blood Pressure Location Pulse Ox 95 Oxygen Delivery Method 12/05/22 00:11 12/05/22 00:11 12/05/22 00:14 Temperature Temperature Source Pulse Rate 76 Respiratory Rate Respiratory Effort Respiratory Depth Respiratory Pattern Blood Pressure Blood Pressure Mean BP Systolic BP Diastolic Blood Pressure Source Blood Pressure Position Blood Pressure Location Pulse Ox 94 94 Oxygen Delivery Method 12/05/22 00:14 12/05/22 00:14 12/05/22 00:14 Temperature Temperature Source Pulse Rate 76 Respiratory Rate Respiratory Effort Respiratory Depth Respiratory Pattern Blood Pressure Blood Pressure Mean BP Systolic BP Diastolic Blood Pressure Source Blood Pressure Position Blood Pressure Location Pulse Ox 95 95 Oxygen Delivery Method 12/05/22 00:17 12/05/22 00:17 12/05/22 00:17 Temperature Temperature Source Pulse Rate 76 76 Respiratory Rate Respiratory Effort Respiratory Depth Respiratory Pattern Blood Pressure Blood Pressure Mean BP Systolic BP Diastolic Blood Pressure Source Blood Pressure Position Blood Pressure Location Pulse Ox 94 Oxygen Delivery Method 12/05/22 00:17 12/05/22 00:19 12/05/22 00:19 Temperature Temperature Source Pulse Rate 76 76 Respiratory Rate Respiratory Effort Respiratory Depth Respiratory Pattern Blood Pressure Blood Pressure Mean BP Systolic BP Diastolic Blood Pressure Source Blood Pressure Position Blood Pressure Location Pulse Ox 94 Oxygen Delivery Method 12/05/22 00:19 12/05/22 00:19 12/05/22 00:24 Temperature Temperature Source Pulse Rate 77 Respiratory Rate Respiratory Effort Respiratory Depth Respiratory Pattern Blood Pressure Blood Pressure Mean BP Systolic BP Diastolic Blood Pressure Source Blood Pressure Position Blood Pressure Location Pulse Ox 94 94 Oxygen Delivery Method 12/05/22 00:24 12/05/22 00:24 12/05/22 00:24 Temperature Temperature Source Pulse Rate 77 Respiratory Rate Respiratory Effort Respiratory Depth Respiratory Pattern Blood Pressure Blood Pressure Mean BP Systolic BP Diastolic Blood Pressure Source Blood Pressure Position Blood Pressure Location Pulse Ox 94 94 Oxygen Delivery Method 12/05/22 00:29 12/05/22 00:29 12/05/22 00:29 Temperature Temperature Source Pulse Rate 76 76 Respiratory Rate Respiratory Effort Respiratory Depth Respiratory Pattern Blood Pressure Blood Pressure Mean BP Systolic BP Diastolic Blood Pressure Source Blood Pressure Position Blood Pressure Location Pulse Ox 94 Oxygen Delivery Method 12/05/22 00:29 12/05/22 00:34 12/05/22 00:34 Temperature Temperature Source Pulse Rate 76 76 Respiratory Rate Respiratory Effort Respiratory Depth Respiratory Pattern Blood Pressure Blood Pressure Mean BP Systolic BP Diastolic Blood Pressure Source Blood Pressure Position Blood Pressure Location Pulse Ox 94 Oxygen Delivery Method 12/05/22 00:34 12/05/22 00:34 12/05/22 00:39 Temperature Temperature Source Pulse Rate 76 Respiratory Rate Respiratory Effort Respiratory Depth Respiratory Pattern Blood Pressure Blood Pressure Mean BP Systolic BP Diastolic Blood Pressure Source Blood Pressure Position Blood Pressure Location Pulse Ox 94 94 Oxygen Delivery Method 12/05/22 00:39 12/05/22 00:39 12/05/22 00:39 Temperature Temperature Source Pulse Rate 76 Respiratory Rate Respiratory Effort Respiratory Depth Respiratory Pattern Blood Pressure Blood Pressure Mean BP Systolic BP Diastolic Blood Pressure Source Blood Pressure Position Blood Pressure Location Pulse Ox 94 94 Oxygen Delivery Method 12/05/22 00:44 12/05/22 00:44 12/05/22 00:44 Temperature Temperature Source Pulse Rate 78 78 Respiratory Rate Respiratory Effort Respiratory Depth Respiratory Pattern Blood Pressure Blood Pressure Mean BP Systolic BP Diastolic Blood Pressure Source Blood Pressure Position Blood Pressure Location Pulse Ox 94 Oxygen Delivery Method 12/05/22 00:44 12/05/22 00:49 12/05/22 00:49 Temperature Temperature Source Pulse Rate 77 77 Respiratory Rate Respiratory Effort Respiratory Depth Respiratory Pattern Blood Pressure Blood Pressure Mean BP Systolic BP Diastolic Blood Pressure Source Blood Pressure Position Blood Pressure Location Pulse Ox 94 Oxygen Delivery Method 12/05/22 00:49 12/05/22 00:49 12/05/22 00:54 Temperature Temperature Source Pulse Rate 85 Respiratory Rate Respiratory Effort Respiratory Depth Respiratory Pattern Blood Pressure Blood Pressure Mean BP Systolic BP Diastolic Blood Pressure Source Blood Pressure Position Blood Pressure Location Pulse Ox 94 94 Oxygen Delivery Method 12/05/22 00:54 12/05/22 00:54 12/05/22 00:54 Temperature Temperature Source Pulse Rate 85 Respiratory Rate Respiratory Effort Respiratory Depth Respiratory Pattern Blood Pressure Blood Pressure Mean BP Systolic BP Diastolic Blood Pressure Source Blood Pressure Position Blood Pressure Location Pulse Ox 94 94 Oxygen Delivery Method 12/05/22 00:59 12/05/22 00:59 12/05/22 00:59 Temperature Temperature Source Pulse Rate 78 78 Respiratory Rate Respiratory Effort Respiratory Depth Respiratory Pattern Blood Pressure Blood Pressure Mean BP Systolic BP Diastolic Blood Pressure Source Blood Pressure Position Blood Pressure Location Pulse Ox 95 Oxygen Delivery Method 12/05/22 00:59 12/05/22 01:01 12/05/22 01:01 Temperature Temperature Source Pulse Rate Respiratory Rate Respiratory Effort Respiratory Depth Respiratory Pattern Blood Pressure 125/74 H 125/74 H Blood Pressure Mean BP Systolic 125 125 BP Diastolic 74 74 Blood Pressure Source Blood Pressure Position Blood Pressure Location Pulse Ox 95 Oxygen Delivery Method 12/05/22 01:01 12/05/22 01:01 12/05/22 01:04 Temperature Temperature Source Pulse Rate 76 76 78 Respiratory Rate Respiratory Effort Respiratory Depth Respiratory Pattern Blood Pressure Blood Pressure Mean BP Systolic BP Diastolic Blood Pressure Source Blood Pressure Position Blood Pressure Location Pulse Ox Oxygen Delivery Method 12/05/22 01:04 12/05/22 01:04 12/05/22 01:04 Temperature Temperature Source Pulse Rate 78 Respiratory Rate Respiratory Effort Respiratory Depth Respiratory Pattern Blood Pressure Blood Pressure Mean BP Systolic BP Diastolic Blood Pressure Source Blood Pressure Position Blood Pressure Location Pulse Ox 94 94 Oxygen Delivery Method 12/05/22 01:09 12/05/22 01:09 12/05/22 01:09 Temperature Temperature Source Pulse Rate 74 74 Respiratory Rate Respiratory Effort Respiratory Depth Respiratory Pattern Blood Pressure Blood Pressure Mean BP Systolic BP Diastolic Blood Pressure Source Blood Pressure Position Blood Pressure Location Pulse Ox 98 Oxygen Delivery Method 12/05/22 01:09 12/05/22 01:14 12/05/22 01:14 Temperature Temperature Source Pulse Rate 73 73 Respiratory Rate Respiratory Effort Respiratory Depth Respiratory Pattern Blood Pressure Blood Pressure Mean BP Systolic BP Diastolic Blood Pressure Source Blood Pressure Position Blood Pressure Location Pulse Ox 98 Oxygen Delivery Method 12/05/22 01:14 12/05/22 01:14 12/05/22 01:14 Temperature Temperature Source Oral Pulse Rate Respiratory Rate Respiratory Effort Respiratory Depth Respiratory Pattern Blood Pressure Blood Pressure Mean BP Systolic BP Diastolic Blood Pressure Source Blood Pressure Position Blood Pressure Location Pulse Ox 97 97 Oxygen Delivery Method 12/05/22 01:14 12/05/22 01:14 12/05/22 01:14 Temperature 98.5 F 98.5 F Temperature Source Oral Pulse Rate Respiratory Rate Respiratory Effort Respiratory Depth Respiratory Pattern Blood Pressure Blood Pressure Mean BP Systolic BP Diastolic Blood Pressure Source Blood Pressure Position Blood Pressure Location Pulse Ox Oxygen Delivery Method 12/05/22 01:19 12/05/22 01:12/05/22 01:19 Temperature Temperature Source Pulse Rate 74 74 Respiratory Rate Respiratory Effort Respiratory Depth Respiratory Pattern Blood Pressure Blood Pressure Mean BP Systolic BP Diastolic Blood Pressure Source Blood Pressure Position Blood Pressure Location Pulse Ox 96 Oxygen Delivery Method 12/05/22 01:19 12/05/22 01:12/05/22 01:24 Temperature Temperature Source Pulse Rate 74 74 Respiratory Rate Respiratory Effort Respiratory Depth Respiratory Pattern Blood Pressure Blood Pressure Mean BP Systolic BP Diastolic Blood Pressure Source Blood Pressure Position Blood Pressure Location Pulse Ox 96 Oxygen Delivery Method 12/05/22 01:24 12/05/22 01:24 12/05/22 01:29 Temperature Temperature Source Pulse Rate 74 Respiratory Rate Respiratory Effort Respiratory Depth Respiratory Pattern Blood Pressure Blood Pressure Mean BP Systolic BP Diastolic Blood Pressure Source Blood Pressure Position Blood Pressure Location Pulse Ox 96 96 Oxygen Delivery Method 12/05/22 01:29 12/05/22 01:29 12/05/22 01:29 Temperature Temperature Source Pulse Rate 74 Respiratory Rate Respiratory Effort Respiratory Depth Respiratory Pattern Blood Pressure Blood Pressure Mean BP Systolic BP Diastolic Blood Pressure Source Blood Pressure Position Blood Pressure Location Pulse Ox 96 96 Oxygen Delivery Method 12/05/22 01:34 12/05/22 01:34 12/05/22 01:34 Temperature Temperature Source Pulse Rate 75 75 Respiratory Rate Respiratory Effort Respiratory Depth Respiratory Pattern Blood Pressure Blood Pressure Mean BP Systolic BP Diastolic Blood Pressure Source Blood Pressure Position Blood Pressure Location Pulse Ox 96 Oxygen Delivery Method 12/05/22 01:34 12/05/22 01:39 12/05/22 01:39 Temperature Temperature Source Pulse Rate 75 75 Respiratory Rate Respiratory Effort Respiratory Depth Respiratory Pattern Blood Pressure Blood Pressure Mean BP Systolic BP Diastolic Blood Pressure Source Blood Pressure Position Blood Pressure Location Pulse Ox 96 Oxygen Delivery Method 12/05/22 01:39 12/05/22 01:39 12/05/22 01:44 Temperature Temperature Source Pulse Rate 75 Respiratory Rate Respiratory Effort Respiratory Depth Respiratory Pattern Blood Pressure Blood Pressure Mean BP Systolic BP Diastolic Blood Pressure Source Blood Pressure Position Blood Pressure Location Pulse Ox 95 95 Oxygen Delivery Method 12/05/22 01:44 12/05/22 01:44 12/05/22 01:44 Temperature Temperature Source Pulse Rate 75 Respiratory Rate Respiratory Effort Respiratory Depth Respiratory Pattern Blood Pressure Blood Pressure Mean BP Systolic BP Diastolic Blood Pressure Source Blood Pressure Position Blood Pressure Location Pulse Ox 96 96 Oxygen Delivery Method 12/05/22 01:49 12/05/22 01:49 12/05/22 01:49 Temperature Temperature Source Pulse Rate 90 90 Respiratory Rate Respiratory Effort Respiratory Depth Respiratory Pattern Blood Pressure Blood Pressure Mean BP Systolic BP Diastolic Blood Pressure Source Blood Pressure Position Blood Pressure Location Pulse Ox 98 Oxygen Delivery Method 12/05/22 01:49 12/05/22 01:54 12/05/22 01:54 Temperature Temperature Source Pulse Rate 77 77 Respiratory Rate Respiratory Effort Respiratory Depth Respiratory Pattern Blood Pressure Blood Pressure Mean BP Systolic BP Diastolic Blood Pressure Source Blood Pressure Position Blood Pressure Location Pulse Ox 98 Oxygen Delivery Method 12/05/22 01:54 12/05/22 01:54 12/05/22 01:59 Temperature Temperature Source Pulse Rate 76 Respiratory Rate Respiratory Effort Respiratory Depth Respiratory Pattern Blood Pressure Blood Pressure Mean BP Systolic BP Diastolic Blood Pressure Source Blood Pressure Position Blood Pressure Location Pulse Ox 97 97 Oxygen Delivery Method 12/05/22 01:59 12/05/22 01:59 12/05/22 01:59 Temperature Temperature Source Pulse Rate 76 Respiratory Rate Respiratory Effort Respiratory Depth Respiratory Pattern Blood Pressure Blood Pressure Mean BP Systolic BP Diastolic Blood Pressure Source Blood Pressure Position Blood Pressure Location Pulse Ox 97 97 Oxygen Delivery Method 12/05/22 02:01 12/05/22 02:01 12/05/22 02:01 Temperature Temperature Source Temporal Temporal Pulse Rate Respiratory Rate Respiratory Effort Respiratory Depth Respiratory Pattern Blood Pressure 122/74 H Blood Pressure Mean BP Systolic 122 BP Diastolic 74 Blood Pressure Source Blood Pressure Position Blood Pressure Location Pulse Ox Oxygen Delivery Method 12/05/22 02:01 12/05/22 02:01 12/05/22 02:01 Temperature Temperature Source Pulse Rate 73 73 Respiratory Rate Respiratory Effort Respiratory Depth Respiratory Pattern Blood Pressure 122/74 H Blood Pressure Mean BP Systolic 122 BP Diastolic 74 Blood Pressure Source Blood Pressure Position Blood Pressure Location Pulse Ox Oxygen Delivery Method 12/05/22 02:01 12/05/22 02:01 12/05/22 02:04 Temperature 98.7 F 98.7 F Temperature Source Pulse Rate 75 Respiratory Rate Respiratory Effort Respiratory Depth Respiratory Pattern Blood Pressure Blood Pressure Mean BP Systolic BP Diastolic Blood Pressure Source Blood Pressure Position Blood Pressure Location Pulse Ox Oxygen Delivery Method 12/05/22 02:04 12/05/22 02:04 12/05/22 02:04 Temperature Temperature Source Pulse Rate 75 Respiratory Rate Respiratory Effort Respiratory Depth Respiratory Pattern Blood Pressure Blood Pressure Mean BP Systolic BP Diastolic Blood Pressure Source Blood Pressure Position Blood Pressure Location Pulse Ox 97 97 Oxygen Delivery Method 12/05/22 02:09 12/05/22 02:09 12/05/22 02:09 Temperature Temperature Source Pulse Rate 74 74 Respiratory Rate Respiratory Effort Respiratory Depth Respiratory Pattern Blood Pressure Blood Pressure Mean BP Systolic BP Diastolic Blood Pressure Source Blood Pressure Position Blood Pressure Location Pulse Ox 98 Oxygen Delivery Method 12/05/22 02:09 12/05/22 02:14 12/05/22 02:14 Temperature Temperature Source Pulse Rate 75 75 Respiratory Rate Respiratory Effort Respiratory Depth Respiratory Pattern Blood Pressure Blood Pressure Mean BP Systolic BP Diastolic Blood Pressure Source Blood Pressure Position Blood Pressure Location Pulse Ox 98 Oxygen Delivery Method 12/05/22 02:14 12/05/22 02:14 12/05/22 02:19 Temperature Temperature Source Pulse Rate 75 Respiratory Rate Respiratory Effort Respiratory Depth Respiratory Pattern Blood Pressure Blood Pressure Mean BP Systolic BP Diastolic Blood Pressure Source Blood Pressure Position Blood Pressure Location Pulse Ox 97 97 Oxygen Delivery Method 12/05/22 02:19 12/05/22 02:19 12/05/22 02:19 Temperature Temperature Source Pulse Rate 75 Respiratory Rate Respiratory Effort Respiratory Depth Respiratory Pattern Blood Pressure Blood Pressure Mean BP Systolic BP Diastolic Blood Pressure Source Blood Pressure Position Blood Pressure Location Pulse Ox 97 97 Oxygen Delivery Method 12/05/22 02:24 12/05/22 02:24 12/05/22 02:24 Temperature Temperature Source Pulse Rate 73 73 Respiratory Rate Respiratory Effort Respiratory Depth Respiratory Pattern Blood Pressure Blood Pressure Mean BP Systolic BP Diastolic Blood Pressure Source Blood Pressure Position Blood Pressure Location Pulse Ox 98 Oxygen Delivery Method 12/05/22 02:24 12/05/22 02:29 12/05/22 02:29 Temperature Temperature Source Pulse Rate 81 81 Respiratory Rate Respiratory Effort Respiratory Depth Respiratory Pattern Blood Pressure Blood Pressure Mean BP Systolic BP Diastolic Blood Pressure Source Blood Pressure Position Blood Pressure Location Pulse Ox 98 Oxygen Delivery Method 12/05/22 02:29 12/05/22 02:29 12/05/22 02:34 Temperature Temperature Source Pulse Rate 75 Respiratory Rate Respiratory Effort Respiratory Depth Respiratory Pattern Blood Pressure Blood Pressure Mean BP Systolic BP Diastolic Blood Pressure Source Blood Pressure Position Blood Pressure Location Pulse Ox 98 98 Oxygen Delivery Method 12/05/22 02:34 12/05/22 02:34 12/05/22 02:34 Temperature Temperature Source Pulse Rate 75 Respiratory Rate Respiratory Effort Respiratory Depth Respiratory Pattern Blood Pressure Blood Pressure Mean BP Systolic BP Diastolic Blood Pressure Source Blood Pressure Position Blood Pressure Location Pulse Ox 98 98 Oxygen Delivery Method 12/05/22 02:39 12/05/22 02:39 12/05/22 02:39 Temperature Temperature Source Pulse Rate 75 75 Respiratory Rate Respiratory Effort Respiratory Depth Respiratory Pattern Blood Pressure Blood Pressure Mean BP Systolic BP Diastolic Blood Pressure Source Blood Pressure Position Blood Pressure Location Pulse Ox 98 Oxygen Delivery Method 12/05/22 02:39 12/05/22 02:44 12/05/22 02:44 Temperature Temperature Source Pulse Rate 72 72 Respiratory Rate Respiratory Effort Respiratory Depth Respiratory Pattern Blood Pressure Blood Pressure Mean BP Systolic BP Diastolic Blood Pressure Source Blood Pressure Position Blood Pressure Location Pulse Ox 98 Oxygen Delivery Method 12/05/22 02:44 12/05/22 02:44 12/05/22 02:49 Temperature Temperature Source Pulse Rate 73 Respiratory Rate Respiratory Effort Respiratory Depth Respiratory Pattern Blood Pressure Blood Pressure Mean BP Systolic BP Diastolic Blood Pressure Source Blood Pressure Position Blood Pressure Location Pulse Ox 98 98 Oxygen Delivery Method 12/05/22 02:49 12/05/22 02:49 12/05/22 02:49 Temperature Temperature Source Pulse Rate 73 Respiratory Rate Respiratory Effort Respiratory Depth Respiratory Pattern Blood Pressure Blood Pressure Mean BP Systolic BP Diastolic Blood Pressure Source Blood Pressure Position Blood Pressure Location Pulse Ox 98 98 Oxygen Delivery Method 12/05/22 02:54 12/05/22 02:54 12/05/22 02:54 Temperature Temperature Source Pulse Rate 73 73 Respiratory Rate Respiratory Effort Respiratory Depth Respiratory Pattern Blood Pressure Blood Pressure Mean BP Systolic BP Diastolic Blood Pressure Source Blood Pressure Position Blood Pressure Location Pulse Ox 98 Oxygen Delivery Method 12/05/22 02:54 12/05/22 02:59 12/05/22 02:59 Temperature Temperature Source Pulse Rate 73 73 Respiratory Rate Respiratory Effort Respiratory Depth Respiratory Pattern Blood Pressure Blood Pressure Mean BP Systolic BP Diastolic Blood Pressure Source Blood Pressure Position Blood Pressure Location Pulse Ox 98 Oxygen Delivery Method 12/05/22 02:59 12/05/22 02:59 12/05/22 03:04 Temperature Temperature Source Pulse Rate 70 Respiratory Rate Respiratory Effort Respiratory Depth Respiratory Pattern Blood Pressure Blood Pressure Mean BP Systolic BP Diastolic Blood Pressure Source Blood Pressure Position Blood Pressure Location Pulse Ox 98 98 Oxygen Delivery Method 12/05/22 03:04 12/05/22 03:04 12/05/22 03:04 Temperature Temperature Source Pulse Rate 70 Respiratory Rate Respiratory Effort Respiratory Depth Respiratory Pattern Blood Pressure Blood Pressure Mean BP Systolic BP Diastolic Blood Pressure Source Blood Pressure Position Blood Pressure Location Pulse Ox 98 98 Oxygen Delivery Method 12/05/22 03:05 12/05/22 03:05 12/05/22 03:05 Temperature Temperature Source Pulse Rate 70 Respiratory Rate Respiratory Effort Respiratory Depth Respiratory Pattern Blood Pressure 131/79 H 131/79 H Blood Pressure Mean BP Systolic 131 131 BP Diastolic 79 79 Blood Pressure Source Blood Pressure Position Blood Pressure Location Pulse Ox Oxygen Delivery Method 12/05/22 03:05 12/05/22 03:09 12/05/22 03:09 Temperature Temperature Source Pulse Rate 70 72 72 Respiratory Rate Respiratory Effort Respiratory Depth Respiratory Pattern Blood Pressure Blood Pressure Mean BP Systolic BP Diastolic Blood Pressure Source Blood Pressure Position Blood Pressure Location Pulse Ox Oxygen Delivery Method 12/05/22 03:09 12/05/22 03:09 12/05/22 03:14 Temperature Temperature Source Pulse Rate 71 Respiratory Rate Respiratory Effort Respiratory Depth Respiratory Pattern Blood Pressure Blood Pressure Mean BP Systolic BP Diastolic Blood Pressure Source Blood Pressure Position Blood Pressure Location Pulse Ox 98 98 Oxygen Delivery Method 12/05/22 03:14 12/05/22 03:14 12/05/22 03:14 Temperature Temperature Source Pulse Rate 71 Respiratory Rate Respiratory Effort Respiratory Depth Respiratory Pattern Blood Pressure Blood Pressure Mean BP Systolic BP Diastolic Blood Pressure Source Blood Pressure Position Blood Pressure Location Pulse Ox 98 98 Oxygen Delivery Method 12/05/22 03:19 12/05/22 03:19 12/05/22 03:19 Temperature Temperature Source Pulse Rate 72 72 Respiratory Rate Respiratory Effort Respiratory Depth Respiratory Pattern Blood Pressure Blood Pressure Mean BP Systolic BP Diastolic Blood Pressure Source Blood Pressure Position Blood Pressure Location Pulse Ox 98 Oxygen Delivery Method 12/05/22 03:19 12/05/22 03:24 12/05/22 03:24 Temperature Temperature Source Pulse Rate 78 78 Respiratory Rate Respiratory Effort Respiratory Depth Respiratory Pattern Blood Pressure Blood Pressure Mean BP Systolic BP Diastolic Blood Pressure Source Blood Pressure Position Blood Pressure Location Pulse Ox 98 Oxygen Delivery Method 12/05/22 03:24 12/05/22 03:24 12/05/22 03:29 Temperature Temperature Source Pulse Rate 74 Respiratory Rate Respiratory Effort Respiratory Depth Respiratory Pattern Blood Pressure Blood Pressure Mean BP Systolic BP Diastolic Blood Pressure Source Blood Pressure Position Blood Pressure Location Pulse Ox 98 98 Oxygen Delivery Method 12/05/22 03:29 12/05/22 03:29 12/05/22 03:29 Temperature Temperature Source Pulse Rate 74 Respiratory Rate Respiratory Effort Respiratory Depth Respiratory Pattern Blood Pressure Blood Pressure Mean BP Systolic BP Diastolic Blood Pressure Source Blood Pressure Position Blood Pressure Location Pulse Ox 98 98 Oxygen Delivery Method 12/05/22 03:34 12/05/22 03:34 12/05/22 03:34 Temperature Temperature Source Pulse Rate 72 72 Respiratory Rate Respiratory Effort Respiratory Depth Respiratory Pattern Blood Pressure Blood Pressure Mean BP Systolic BP Diastolic Blood Pressure Source Blood Pressure Position Blood Pressure Location Pulse Ox 98 Oxygen Delivery Method 12/05/22 03:34 12/05/22 03:39 12/05/22 03:39 Temperature Temperature Source Pulse Rate 71 71 Respiratory Rate Respiratory Effort Respiratory Depth Respiratory Pattern Blood Pressure Blood Pressure Mean BP Systolic BP Diastolic Blood Pressure Source Blood Pressure Position Blood Pressure Location Pulse Ox 98 Oxygen Delivery Method 12/05/22 03:39 12/05/22 03:39 12/05/22 03:41 Temperature Temperature Source Pulse Rate 73 Respiratory Rate Respiratory Effort Respiratory Depth Respiratory Pattern Blood Pressure Blood Pressure Mean BP Systolic BP Diastolic Blood Pressure Source Blood Pressure Position Blood Pressure Location Pulse Ox 96 96 Oxygen Delivery Method 12/05/22 03:41 12/05/22 03:41 12/05/22 03:41 Temperature Temperature Source Pulse Rate 73 Respiratory Rate Respiratory Effort Respiratory Depth Respiratory Pattern Blood Pressure Blood Pressure Mean BP Systolic BP Diastolic Blood Pressure Source Blood Pressure Position Blood Pressure Location Pulse Ox 88 88 Oxygen Delivery Method 12/05/22 03:44 12/05/22 03:44 12/05/22 03:44 Temperature Temperature Source Pulse Rate 91 91 Respiratory Rate Respiratory Effort Respiratory Depth Respiratory Pattern Blood Pressure Blood Pressure Mean BP Systolic BP Diastolic Blood Pressure Source Blood Pressure Position Blood Pressure Location Pulse Ox 91 Oxygen Delivery Method 12/05/22 03:44 12/05/22 03:49 12/05/22 03:49 Temperature Temperature Source Pulse Rate 83 83 Respiratory Rate Respiratory Effort Respiratory Depth Respiratory Pattern Blood Pressure Blood Pressure Mean BP Systolic BP Diastolic Blood Pressure Source Blood Pressure Position Blood Pressure Location Pulse Ox 91 Oxygen Delivery Method 12/05/22 03:49 12/05/22 03:49 12/05/22 03:54 Temperature Temperature Source Pulse Rate 83 Respiratory Rate Respiratory Effort Respiratory Depth Respiratory Pattern Blood Pressure Blood Pressure Mean BP Systolic BP Diastolic Blood Pressure Source Blood Pressure Position Blood Pressure Location Pulse Ox 98 98 Oxygen Delivery Method 12/05/22 03:54 12/05/22 03:54 12/05/22 03:54 Temperature Temperature Source Pulse Rate 83 Respiratory Rate Respiratory Effort Respiratory Depth Respiratory Pattern Blood Pressure Blood Pressure Mean BP Systolic BP Diastolic Blood Pressure Source Blood Pressure Position Blood Pressure Location Pulse Ox 99 99 Oxygen Delivery Method 12/05/22 04:06 12/05/22 04:06 12/05/22 04:06 Temperature Temperature Source Pulse Rate 70 Respiratory Rate Respiratory Effort Respiratory Depth Respiratory Pattern Blood Pressure 140/94 H 140/94 H Blood Pressure Mean BP Systolic 140 140 BP Diastolic 94 94 Blood Pressure Source Blood Pressure Position Blood Pressure Location Pulse Ox Oxygen Delivery Method 12/05/22 04:06 12/05/22 04:45 12/05/22 04:45 Temperature Temperature Source Pulse Rate 70 78 78 Respiratory Rate Respiratory Effort Respiratory Depth Respiratory Pattern Blood Pressure Blood Pressure Mean BP Systolic BP Diastolic Blood Pressure Source Blood Pressure Position Blood Pressure Location Pulse Ox Oxygen Delivery Method 12/05/22 04:45 12/05/22 04:45 12/05/22 04:50 Temperature Temperature Source Pulse Rate 86 Respiratory Rate Respiratory Effort Respiratory Depth Respiratory Pattern Blood Pressure Blood Pressure Mean BP Systolic BP Diastolic Blood Pressure Source Blood Pressure Position Blood Pressure Location Pulse Ox 98 98 Oxygen Delivery Method 12/05/22 04:50 12/05/22 04:50 12/05/22 04:50 Temperature Temperature Source Pulse Rate 86 Respiratory Rate Respiratory Effort Respiratory Depth Respiratory Pattern Blood Pressure Blood Pressure Mean BP Systolic BP Diastolic Blood Pressure Source Blood Pressure Position Blood Pressure Location Pulse Ox 97 97 Oxygen Delivery Method 12/05/22 04:55 12/05/22 04:55 12/05/22 04:55 Temperature Temperature Source Pulse Rate 79 79 Respiratory Rate Respiratory Effort Respiratory Depth Respiratory Pattern Blood Pressure Blood Pressure Mean BP Systolic BP Diastolic Blood Pressure Source Blood Pressure Position Blood Pressure Location Pulse Ox 99 Oxygen Delivery Method 12/05/22 04:55 12/05/22 05:00 12/05/22 05:00 Temperature Temperature Source Pulse Rate 99 99 Respiratory Rate Respiratory Effort Respiratory Depth Respiratory Pattern Blood Pressure Blood Pressure Mean BP Systolic BP Diastolic Blood Pressure Source Blood Pressure Position Blood Pressure Location Pulse Ox 99 Oxygen Delivery Method 12/05/22 05:00 12/05/22 05:00 12/05/22 05:05 Temperature Temperature Source Pulse Rate 93 Respiratory Rate Respiratory Effort Respiratory Depth Respiratory Pattern Blood Pressure Blood Pressure Mean BP Systolic BP Diastolic Blood Pressure Source Blood Pressure Position Blood Pressure Location Pulse Ox 97 97 Oxygen Delivery Method 12/05/22 05:05 12/05/22 05:05 12/05/22 05:05 Temperature Temperature Source Pulse Rate 93 Respiratory Rate Respiratory Effort Respiratory Depth Respiratory Pattern Blood Pressure Blood Pressure Mean BP Systolic BP Diastolic Blood Pressure Source Blood Pressure Position Blood Pressure Location Pulse Ox 99 99 Oxygen Delivery Method 12/05/22 05:10 12/05/22 05:10 12/05/22 05:10 Temperature Temperature Source Pulse Rate 79 79 Respiratory Rate Respiratory Effort Respiratory Depth Respiratory Pattern Blood Pressure Blood Pressure Mean BP Systolic BP Diastolic Blood Pressure Source Blood Pressure Position Blood Pressure Location Pulse Ox 96 Oxygen Delivery Method 12/05/22 05:10 12/05/22 05:15 12/05/22 05:15 Temperature Temperature Source Pulse Rate 99 99 Respiratory Rate Respiratory Effort Respiratory Depth Respiratory Pattern Blood Pressure Blood Pressure Mean BP Systolic BP Diastolic Blood Pressure Source Blood Pressure Position Blood Pressure Location Pulse Ox 96 Oxygen Delivery Method 12/05/22 05:15 12/05/22 05:15 12/05/22 05:20 Temperature Temperature Source Pulse Rate 87 Respiratory Rate Respiratory Effort Respiratory Depth Respiratory Pattern Blood Pressure Blood Pressure Mean BP Systolic BP Diastolic Blood Pressure Source Blood Pressure Position Blood Pressure Location Pulse Ox 97 97 Oxygen Delivery Method 12/05/22 05:20 12/05/22 05:20 12/05/22 05:20 Temperature Temperature Source Pulse Rate 87 Respiratory Rate Respiratory Effort Respiratory Depth Respiratory Pattern Blood Pressure Blood Pressure Mean BP Systolic BP Diastolic Blood Pressure Source Blood Pressure Position Blood Pressure Location Pulse Ox 98 98 Oxygen Delivery Method 12/05/22 05:36 12/05/22 05:36 12/05/22 05:36 Temperature Temperature Source Pulse Rate 87 Respiratory Rate Respiratory Effort Respiratory Depth Respiratory Pattern Blood Pressure 107/63 107/63 Blood Pressure Mean BP Systolic 107 107 BP Diastolic 63 63 Blood Pressure Source Blood Pressure Position Blood Pressure Location Pulse Ox Oxygen Delivery Method 12/05/22 05:36 12/05/22 05:36 12/05/22 05:36 Temperature Temperature Source Pulse Rate 87 Respiratory Rate Respiratory Effort Respiratory Depth Respiratory Pattern Blood Pressure Blood Pressure Mean BP Systolic BP Diastolic Blood Pressure Source Blood Pressure Position Blood Pressure Location Pulse Ox 95 95 Oxygen Delivery Method 12/05/22 05:37 12/05/22 05:37 12/05/22 05:37 Temperature Temperature Source Pulse Rate 88 Respiratory Rate Respiratory Effort Respiratory Depth Respiratory Pattern Blood Pressure 106/65 106/65 Blood Pressure Mean BP Systolic 106 106 BP Diastolic 65 65 Blood Pressure Source Blood Pressure Position Blood Pressure Location Pulse Ox Oxygen Delivery Method 12/05/22 05:37 12/05/22 05:41 12/05/22 05:41 Temperature Temperature Source Pulse Rate 88 83 83 Respiratory Rate Respiratory Effort Respiratory Depth Respiratory Pattern Blood Pressure Blood Pressure Mean BP Systolic BP Diastolic Blood Pressure Source Blood Pressure Position Blood Pressure Location Pulse Ox Oxygen Delivery Method 12/05/22 05:41 12/05/22 05:41 12/05/22 05:42 Temperature Temperature Source Pulse Rate Respiratory Rate Respiratory Effort Respiratory Depth Respiratory Pattern Blood Pressure 134/89 H Blood Pressure Mean BP Systolic 134 BP Diastolic 89 Blood Pressure Source Blood Pressure Position Blood Pressure Location Pulse Ox 98 98 Oxygen Delivery Method 12/05/22 05:42 12/05/22 05:42 12/05/22 05:42 Temperature Temperature Source Pulse Rate 82 82 Respiratory Rate Respiratory Effort Respiratory Depth Respiratory Pattern Blood Pressure 134/89 H Blood Pressure Mean BP Systolic 134 BP Diastolic 89 Blood Pressure Source Blood Pressure Position Blood Pressure Location Pulse Ox Oxygen Delivery Method 12/05/22 05:46 12/05/22 05:46 12/05/22 05:46 Temperature Temperature Source Pulse Rate 86 86 Respiratory Rate Respiratory Effort Respiratory Depth Respiratory Pattern Blood Pressure Blood Pressure Mean BP Systolic BP Diastolic Blood Pressure Source Blood Pressure Position Blood Pressure Location Pulse Ox 99 Oxygen Delivery Method 12/05/22 05:46 12/05/22 05:47 12/05/22 05:47 Temperature Temperature Source Pulse Rate Respiratory Rate Respiratory Effort Respiratory Depth Respiratory Pattern Blood Pressure 133/95 H 133/95 H Blood Pressure Mean BP Systolic 133 133 BP Diastolic 95 95 Blood Pressure Source Blood Pressure Position Blood Pressure Location Pulse Ox 99 Oxygen Delivery Method 12/05/22 05:47 12/05/22 05:47 12/05/22 05:51 Temperature Temperature Source Pulse Rate 85 85 106 H Respiratory Rate Respiratory Effort Respiratory Depth Respiratory Pattern Blood Pressure Blood Pressure Mean BP Systolic BP Diastolic Blood Pressure Source Blood Pressure Position Blood Pressure Location Pulse Ox Oxygen Delivery Method 12/05/22 05:51 12/05/22 05:51 12/05/22 05:51 Temperature Temperature Source Pulse Rate 106 H Respiratory Rate Respiratory Effort Respiratory Depth Respiratory Pattern Blood Pressure Blood Pressure Mean BP Systolic BP Diastolic Blood Pressure Source Blood Pressure Position Blood Pressure Location Pulse Ox 99 99 Oxygen Delivery Method 12/05/22 05:56 12/05/22 05:56 12/05/22 05:56 Temperature Temperature Source Pulse Rate 93 93 Respiratory Rate Respiratory Effort Respiratory Depth Respiratory Pattern Blood Pressure Blood Pressure Mean BP Systolic BP Diastolic Blood Pressure Source Blood Pressure Position Blood Pressure Location Pulse Ox 98 Oxygen Delivery Method 12/05/22 05:56 12/05/22 06:01 12/05/22 06:01 Temperature Temperature Source Pulse Rate 93 93 Respiratory Rate Respiratory Effort Respiratory Depth Respiratory Pattern Blood Pressure Blood Pressure Mean BP Systolic BP Diastolic Blood Pressure Source Blood Pressure Position Blood Pressure Location Pulse Ox 98 Oxygen Delivery Method 12/05/22 06:01 12/05/22 06:01 12/05/22 06:02 Temperature Temperature Source Pulse Rate Respiratory Rate Respiratory Effort Respiratory Depth Respiratory Pattern Blood Pressure 148/80 H Blood Pressure Mean BP Systolic 148 BP Diastolic 80 Blood Pressure Source Blood Pressure Position Blood Pressure Location Pulse Ox 97 97 Oxygen Delivery Method 12/05/22 06:02 12/05/22 06:02 12/05/22 06:02 Temperature Temperature Source Pulse Rate 94 94 Respiratory Rate Respiratory Effort Respiratory Depth Respiratory Pattern Blood Pressure 148/80 H Blood Pressure Mean BP Systolic 148 BP Diastolic 80 Blood Pressure Source Blood Pressure Position Blood Pressure Location Pulse Ox Oxygen Delivery Method 12/05/22 06:06 12/05/22 06:06 12/05/22 06:06 Temperature Temperature Source Pulse Rate 93 93 Respiratory Rate Respiratory Effort Respiratory Depth Respiratory Pattern Blood Pressure Blood Pressure Mean BP Systolic BP Diastolic Blood Pressure Source Blood Pressure Position Blood Pressure Location Pulse Ox 97 Oxygen Delivery Method 12/05/22 06:06 12/05/22 06:11 12/05/22 06:11 Temperature Temperature Source Pulse Rate 93 93 Respiratory Rate Respiratory Effort Respiratory Depth Respiratory Pattern Blood Pressure Blood Pressure Mean BP Systolic BP Diastolic Blood Pressure Source Blood Pressure Position Blood Pressure Location Pulse Ox 97 Oxygen Delivery Method 12/05/22 06:11 12/05/22 06:11 12/05/22 06:15 Temperature Temperature Source Pulse Rate Respiratory Rate Respiratory Effort Respiratory Depth Respiratory Pattern Blood Pressure 137/74 H Blood Pressure Mean BP Systolic 137 BP Diastolic 74 Blood Pressure Source Blood Pressure Position Blood Pressure Location Pulse Ox 98 98 Oxygen Delivery Method 12/05/22 06:15 12/05/22 06:15 12/05/22 06:15 Temperature Temperature Source Pulse Rate 91 91 Respiratory Rate Respiratory Effort Respiratory Depth Respiratory Pattern Blood Pressure 137/74 H Blood Pressure Mean BP Systolic 137 BP Diastolic 74 Blood Pressure Source Blood Pressure Position Blood Pressure Location Pulse Ox Oxygen Delivery Method 12/04/22 18:47 12/04/22 19:19 12/04/22 20:30 Temperature 98 F Temperature Source Temporal Pulse Rate 78 Respiratory Rate 16 Respiratory Effort Normal Normal Respiratory Depth Normal Normal Respiratory Pattern Normal Normal Blood Pressure 168/97 H Blood Pressure Mean 120 BP Systolic BP Diastolic Blood Pressure Source Monitor Blood Pressure Position Semi-Fowlers Blood Pressure Location Right Arm Pulse Ox 98 98 Oxygen Delivery Method Room Air Room Air Room Air 12/04/22 21:26 12/04/22 22:25 12/04/22 23:38 Temperature Temperature Source Pulse Rate 77 Respiratory Rate 16 16 Respiratory Effort Normal Normal Respiratory Depth Normal Normal Respiratory Pattern Normal Normal Blood Pressure 157/96 H Blood Pressure Mean 116 BP Systolic BP Diastolic Blood Pressure Source Monitor Blood Pressure Position Left Lateral Blood Pressure Location Right Arm Pulse Ox 98 98 Oxygen Delivery Method Room Air Room Air 12/05/22 00:00 12/05/22 01:00 12/05/22 02:00 Temperature 99.2 F H 98.5 F 98.7 F Temperature Source Temporal Oral Temporal Pulse Rate 80 78 77 Respiratory Rate 16 16 16 Respiratory Effort Normal Respiratory Depth Normal Respiratory Pattern Normal Blood Pressure 116/74 125/74 H 122/74 H Blood Pressure Mean 88 91 90 BP Systolic BP Diastolic Blood Pressure Source Monitor Blood Pressure Position Supine Supine Semi-Fowlers Blood Pressure Location Left Forearm Left Forearm Left Arm Pulse Ox 95 95 97 Oxygen Delivery Method Room Air Room Air Room Air 12/05/22 03:04 12/05/22 04:00 12/05/22 06:00 Temperature 97.8 F 99.0 F 98.4 F Temperature Source Temporal Temporal Temporal Pulse Rate 72 70 95 Respiratory Rate 16 16 16 Respiratory Effort Normal Respiratory Depth Normal Respiratory Pattern Normal Blood Pressure 131/79 H 140/94 H 148/80 H Blood Pressure Mean 96 109 102 BP Systolic BP Diastolic Blood Pressure Source Monitor Monitor Monitor Blood Pressure Position Sitting Semi-Fowlers Semi-Fowlers Blood Pressure Location Left Arm Left Forearm Left Arm Pulse Ox 97 98 98 Oxygen Delivery Method Room Air Room Air Room Air Weight Weight: 169 lb 12.095 oz Body Mass Index (BMI) 32.1 Physical Exam Const alert, oriented x3, no apparent distress and healthy appearing HEENT normocephalic and moist oral mucous membranes Head and Scalp: atraumatic Neck full ROM, no lymphadenopathy, supple and thyroid normal General: trachea midline Lymph Lymphatic: no lymphadenopathy noted Chest inspection of chest normal Resp normal respiratory effort Cardio regular rate GI normal to inspection, nondistended, normoactive bowel sounds, soft to palpation and non-tender Inspection: gravid external exam normal Manual OB Exam: estimated gestational size appropriate, presentation cephalic, dilated, effaced and station Extremity normal to inspection General Extremity: Negative for edema Skin no rashes or lesions noted Neuro no focal motor deficits and deep tendon reflexes 2+ bilaterally Motor Exam: strength 5/5 throughout and clonus absent Psych mental status grossly normal Labs Labs Labs: Blood Type A POSITIVE Antibody Screen NEGATIVE Hct 35.3 % (37-47) L Hgb 11.9 g/dL (12.0-15.0) L Syphilis Total Ab Non-reactive Rubella IgG Antibody Non-Reactive (Nonreactive) Hep Bs Antigen Non-Reactive (Nonreactive) HIV 1&2 Antibody Non-Reactive (Nonreactive) Group B Strep DNA Negative (Negative) Assessment & Plan (1) Oligohydramnios in third trimester: QUALIFIERS: Fetus number: single or unspecified fetus Qualified Code(s): O41.03X0 - Oligohydramnios, third trimester, not applicable or unspecified (2) Preeclampsia, severe: QUALIFIERS: Trimester: third trimester Qualified Code(s): O14.13 - Severe pre-eclampsia, third trimester PLAN: Plan Patient presents IOL, plan management for with pit fb. Pain management: plans epidural. GBS uknown no risk factors. Management of any complications: severe preeclampsia start magnesium and labetalol with HTN protocol I have reviewed the [facility] and made any clinically relevant updates.
--- NOTE | 2022-12-05 06:39 | EX.PCM.OBRPT ---
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 severe preeclampsia (3) Oligohydramnios in third trimester: QUALIFIERS: Fetus number: single or unspecified fetus Qualified Code(s): O41.03X0 - Oligohydramnios, third trimester, not applicable or unspecified (4) Preeclampsia, severe: QUALIFIERS: Trimester: third trimester Qualified Code(s): O14.13 - Severe pre-eclampsia, third trimester Vaginal Delivery Operative Information Date of Procedure: 12/05/22 Pre-Operative Diagnosis: see a/p diagnoses Post-Operative Diagnosis: same Surgery / Procedure Performed: Spontaneous Vaginal Delivery Type of Anesthesia: Epidural Special Medications: hemabate cytotec Estimated Blood Loss: 600 Fluids Replaced: crystalloid Findings Description of Procedure: Patient began pushing and delivered the head in the [place] presentation. The head was delivered atraumatically . The anterior and posterior shoulders delivered without complication followed by the rest of the infant and the was placed on the maternal abdomen. Delayed cord clamping was employed for approximately 60 seconds. Cord was clamped and cut and gentle traction was applied to the cord and the placenta delivered spontaneously immediately following it was noted to be intact with three-vessel cord. The perineum and vagina were inspected and noted to have a first degree perineal laceration and right labial which was repaired in the usual fashion with 3-0 vicryl rapide. she experienced uterine atony and hemorrhage which was treated with massage, pitocin, hemabate and cytotec. EBL was 600. Patient and infant tolerated delivery well. Amniotic Fluid Description: Clear Placental Delivery Description: Spontaneous Placenta Disposition: [facility] Cord Vessel Description: 3 Vessels Cord Entanglement: None Delayed Cord Clamping: Yes Post Vaginal Delivery Medications Given After Delivery: - (Pitocin) Episiotomy Description: None Complication Complications: None Procedures Urinary/Genital [id number]: [id number] Vaginal Delivery+PP Care([facility])
--- NOTE | 2022-12-05 06:40 | DCINST_ITS ---
Discharge Instructions Diet Discharge Diet: No restrictions Activity Discharge Activity: Return to Normal Activity, May Not Drive (while taking narcotic pain medications.) and May Shower May resume sexual activity in: 4-6 weeks Dressing / Incision Call your doctor if your incision/area has: Continuous Slow Oozing, Sudden Increased Bleeding, Increased Pain/ Swelling, Increased Redness and Foul Smelling Discharge Follow Up Care Please Follow Up With: Jocelyne Adan MD When: Call [phone] to make an appointment with your doctor in 6 weeks. If you had elevated blood pressure or 4th degree laceration, you will need to be seen in 2 weeks. Test Results: Test results from this visit will be discussed in further detail at your follow- up appointment, if applicable. Discharge Plan Admission Admit Date/Time: 12/04/22 15:50 Attending Provider: Jocelyne Adan Primary Care Provider: BEENA VILLALPANDO Discharge Orders/Prescriptions Prescriptions: No Action hemaplex 1 tab PO DAILY magnesium oxide 400 mg (241.3 mg magnesium) tablet 400 mg PO DAILY ascorbate calcium (vitamin C) 500 mg tablet 500 mg PO DAILY thiamine HCl (vitamin B1) 100 mg tablet 100 mg PO DAILY omega-3 fatty acids 1 tab PO DAILY docosahexaenoic acid [ DHA] 1 cap PO DAILY Referrals / Follow Up: [facility] [Other] Disposition Disposition (needs filled in before D/C Order can be placed): Home, Self Care
[2022-12-05 08:41] LABS: Absolute Lymphocyte Count 0.66 X10^3/uL (0.83-4.51); Absolute Neutrophil Count 16.7 X10^3/uL (2.0-7.7); Basophil# 0.03 X10^3/uL; Basophil% 0.2 % (0-1); Eosinophil# 0.01 X10^3/uL; Eosinophils% 0.1 % (0-5); Hematocrit 30.9 % (37-47); Hemoglobin 10.4 g/dL (12.0-15.0); Lymphocyte # 0.66 X10^3/ul (0.83-4.51); Lymphocyte % 3.4 % (19-41); Mean Corp Hgb Conc 33.7 g/dL (32-36); Monocyte# 1.71 X10^3/uL; Monocyte% 8.9 % (0-10); NRBC Flagged by Analyzer 0 % (0-5); Neutrophil # 16.71 X10^3/uL (2.7-7.7); Neutrophil % 86.7 % (47-70); POSITIVE DIFFERENTIAL YES; Platelet Count 211 K/mm3 (150-450); RBC Distribution Width SD 41.9 fl (35.1-43.9); Red Blood Count 3.47 M/mm3 (4.2-5.4); White Blood Count 19.3 K/mm3 (4.4-11.0)
[2022-12-05 08:42] LABS: Differential Indicated SCAN CRITERIA MET
[2022-12-05 09:49] LABS: Platelet Estimate ADEQUATE (ADEQ); Red Cell Morphology NORM C+C NORMAL (NORM C&C)
[2022-12-05 10:46] LABS: ALB/GLOB Ratio 0.6 RATIO (0.9-2.4); AST(SGOT) 54 U/L (15-37); Alanine Aminotransfer ALT/SGPT 47 U/L (13-56); Alkaline Phosphatase 144 U/L (45-117); Anion Gap 8 (5-15); BUN 9 mg/dL (7-18); Calcium,Total 7.4 mg/dL (8.5-10.1); Chloride 108 mmol/L (98-107); Creatinine, Serum 0.69 mg/dL (0.55-1.02); EST Glomerular Filtration Rate 111 mL/min (>60); Est Glom Filt Rate - Afr Amer 135 mL/min (>60); Estimated Creatinine Clearance 95.69 ml/min; Globulin 3.3 g/dL (2.2-4.2); Glucose 95 mg/dL (74-106); Potassium 3.5 mmol/L (3.5-5.1); Protein, Total 5.3 g/dL (6.4-8.2); Sodium Level 136 mmol/L (136-145)
--- NOTE | 2022-12-05 19:30 | NURSING ---
patient educated on rubella non immune status and MMR vaccine. patient declined to receive MMR.
[2022-12-06] VITALS (14 sets, daily range): BP systolic 108–126; BP diastolic 56–73; PULSE 74–105; RESP 16–18; TEMP 36.9–37.5; O2SAT 94–97
[2022-12-06] MEDS: Magnesium Sulfate 20 GM/500 ML BAG IV (00:14)
[2022-12-06 05:49] LABS: Absolute Lymphocyte Count 1.17 X10^3/uL (0.83-4.51); Absolute Neutrophil Count 11.4 X10^3/uL (2.0-7.7); Basophil# 0.02 X10^3/uL; Basophil% 0.1 % (0-1); Eosinophil# 0.13 X10^3/uL; Eosinophils% 0.9 % (0-5); Hematocrit 23.2 % (37-47); Hemoglobin 7.6 g/dL (12.0-15.0); Lymphocyte # 1.17 X10^3/ul (0.83-4.51); Lymphocyte % 8.3 % (19-41); Mean Corp Hgb Conc 32.8 g/dL (32-36); Mean Corpuscular Hgb 29.7 pg (27.0-32.0); Mean Corpuscular Volume 90.6 fL (81-99); Mean Platelet Vol. 9.5 fl (6.2-12.0); Monocyte# 1.31 X10^3/uL; Monocyte% 9.3 % (0-10); NRBC Flagged by Analyzer 0 % (0-5); Neutrophil # 11.35 X10^3/uL (2.7-7.7); Neutrophil % 80.3 % (47-70); Platelet Count 179 K/mm3 (150-450); RBC Distribution Width CV 13.3 % (11.6-14.6); RBC Distribution Width SD 43.5 fl (35.1-43.9); Red Blood Count 2.56 M/mm3 (4.2-5.4); White Blood Count 14.1 K/mm3 (4.4-11.0)
[2022-12-06 06:49] LABS: ALB/GLOB Ratio 0.6 RATIO (0.9-2.4); AST(SGOT) 63 U/L (15-37); Alanine Aminotransfer ALT/SGPT 48 U/L (13-56); Albumin, Serum 1.9 g/dL (3.2-5.0); Alkaline Phosphatase 115 U/L (45-117); Anion Gap 5 (5-15); BUN 9 mg/dL (7-18); BUN/Creat Ratio 21.1 RATIO (10-20); Calcium,Total 6.4 mg/dL (8.5-10.1); Chloride 110 mmol/L (98-107); Creatinine, Serum 0.43 mg/dL (0.55-1.02); EST Glomerular Filtration Rate 195 mL/min (>60); Est Glom Filt Rate - Afr Amer 236 mL/min (>60); Estimated Creatinine Clearance 153.54 ml/min; Globulin 3.3 g/dL (2.2-4.2); Glucose 105 mg/dL (74-106); Potassium 3.9 mmol/L (3.5-5.1); Protein, Total 5.2 g/dL (6.4-8.2); Sodium Level 139 mmol/L (136-145)
--- NOTE | 2022-12-06 07:25 | PN.OBGYN_ITS ---
Subjective Subjective Patient doing well without complaints. Tolerating PO. Ambulating and voiding without difficulty. feeding well. Denies chest pain, shortness of breath, calf pain/swelling, fevers, chills, lightheadedness. Objective Data Objective Data Vital Signs: Vital Signs Temp Pulse Resp BP Pulse Ox O2 Del Method 98.8 F 80 18 108/60 95 Room Air 12/06/22 05:18 12/06/22 05:25 12/06/22 05:18 12/06/22 05:25 12/06/22 05:24 12/06/22 05:18 Oxygen Delivery Method Room Air Weight: 169 lb 12.095 oz Body Mass Index (BMI) 32.1 Intake & Output: Intake and Output for Last 24 Hours 12/04/22 12/05/22 12/06/22 23:59 23:59 23:59 Intake Total 1030.06 / 1030.06 3004.53 / 3004.53 1489.41 / 1489.41 Output Total 650 / 1100 4540 / 4540 1000 / 1000 Balance 380.06 / -69.94 -1535.47 / -1535.47 489.41 / 489.41 Lab / Micro Data 12/06/22 05:30 12/06/22 05:30 Labs: Laboratory Results - last 24 hr 12/05/22 08:17: WBC 19.3 H, RBC 3.47 L, Hgb 10.4 L, Hct 30.9 L, MCV 89.0, MCH 30 .0, MCHC 33.7, RDW Std Deviation 41.9, RDW Coeff of Bernardo 13.0, Plt Count 211, MPV 10.0, Immature Gran % (Auto) 0.700, Neut % (Auto) 86.7 H, Lymph % (Auto) 3.4 L, [place]ding % (Auto) 8.9, Eos % (Auto) 0.1, Baso % (Auto) 0.2, Absolute Neuts (auto) 16.7 H, Absolute Lymphs (auto) 0.66 L, Nucleated RBC % 0, Diff Path Review September, Platelet Estimate ADEQUATE, RBC Morphology NORM C+C, Sodium 136, Potassium 3.5, Chloride 108 H, Carbon Dioxide 20.0 L, Anion Gap 8, BUN 9, Creatinine 0.69, Estim Creat Clear Calc 95.69, Est GFR (MDRD) Af Amer 135, Est GFR (MDRD) Non-Af 111, BUN/Creatinine Ratio 13.0, Glucose 95, Calcium 7.4 L, Total Bilirubin 0.70, AST 54 H, ALT 47, Alkaline Phosphatase 144 H, Total Protein 5.3 L, Albumin 2.0 L , Globulin 3.3, Albumin/Globulin Ratio 0.6 L 12/06/22 05:30: WBC 14.1 H, RBC 2.56 L, Hgb 7.6 L, Hct 23.2 L, MCV 90.6, MCH 29.7, MCHC 32.8, RDW Std Deviation 43.5, RDW Coeff of Bernardo 13.3, Plt Count 179, MPV 9.5, Immature Gran % (Auto) 1.100 H, Neut % (Auto) 80.3 H, Lymph % (Auto) 8.3 L, Spalding % (Auto) 9.3, Eos % (Auto) 0.9, Baso % (Auto) 0.1, Absolute Neuts (auto) 11.4 H, Absolute Lymphs (auto) 1.17, Nucleated RBC % 0, Sodium 139, Potassium 3.9, Chloride 110 H, Carbon Dioxide 24.0, Anion Gap 5, BUN 9, Creatinine 0.43 L, Estim Creat Clear Calc 153.54, Est GFR (MDRD) Af Amer 236, Est GFR (MDRD) Non-Af 195, BUN/Creatinine Ratio 21.1 H, Glucose 105, Calcium 6.4 L*, Total Bilirubin 0.30, AST 63 H, ALT 48, Alkaline Phosphatase 115, Total Protein 5.2 L, Albumin 1.9 L, Globulin 3.3, Albumin/Globulin Ratio 0.6 L Micro: Microbiology 12/04/22 20:17 Urine, Clean Catch Chlamydia trachomatis (PCR) - Final 12/04/22 20:17 Urine, Clean Catch Neisseria gonorrhoeae (PCR) - Final ROS Constitutional Constitutional: Reports systems reviewed and no addt'l complaints, except as documented Cardiovascular Cardiovascular: Reports systems reviewed and no addt'l complaints, except as documented Respiratory/Chest Respiratory/Chest: Reports systems reviewed and no addt'l complaints, except as documented Gastrointestinal Gastrointestinal: Reports systems reviewed and no addt'l complaints, except as documented Physical Exam Const alert, oriented x3 and no apparent distress HEENT Head and Scalp: atraumatic Resp normal respiratory effort GI soft to palpation and non-tender Bimanual Exam - Vag & Uterus: uterus non-tender Uterus Palpation: uterus fundus firm (below Umbilicus) Assessment & Plan (1) atony of uterus with hemorrhage: COMMENT: 600 EBL pitocin massage hemabate cytotec (2) Vaginal delivery: COMMENT: 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 bps stable.
[2022-12-06 12:01] LABS: ALB/GLOB Ratio 0.6 RATIO (0.9-2.4); AST(SGOT) 68 U/L (15-37); Alanine Aminotransfer ALT/SGPT 56 U/L (13-56); Alkaline Phosphatase 122 U/L (45-117); Anion Gap 4 (5-15); BUN 8 mg/dL (7-18); BUN/Creat Ratio 10.6 RATIO (10-20); Calcium,Total 6.9 mg/dL (8.5-10.1); Chloride 113 mmol/L (98-107); Creatinine, Serum 0.75 mg/dL (0.55-1.02); EST Glomerular Filtration Rate 101 mL/min (>60); Est Glom Filt Rate - Afr Amer 122 mL/min (>60); Estimated Creatinine Clearance 88.03 ml/min; Globulin 3.5 g/dL (2.2-4.2); Glucose 91 mg/dL (74-106); Potassium 4.1 mmol/L (3.5-5.1); Protein, Total 5.5 g/dL (6.4-8.2); Sodium Level 141 mmol/L (136-145)
--- NOTE | 2022-12-06 13:33 | NURSING ---
Phone call placed to Dr. Adan on lab results. Verbal telephone order given for her to be discharged. Needs to follow up in office 12/10 or 12/11 for BP check and labs. Would like to get BP cuff at drug store, record readings and call MD if pressures are greater then 150/100.
[2022-12-07 13:25] LABS: Pathologist Review Reviewed
[2022-12-07 13:29] LABS: Pathologist Review Reviewed
[2022-12-14 07:47] LABS: Pathology Specimen OB SEE PATHOLOGY REPORT
== END 2022-12-06 16:10 | disposition home or self-care (01) | DRG 806 ==
PROVIDERS: Admitting Provider Obstetrics & Gynecology; Visit Provider Obstetrics & Gynecology
DX: O14.14 Severe pre-eclampsia complicating childbirth (principal); Z37.0 Single live birth; O41.03X0 Oligohydramnios, third trimester, not applicable or unspecified; O72.1 Other immediate postpartum hemorrhage; O70.0 First degree perineal laceration during delivery; O48.0 Post-term pregnancy; Z3A.41 41 weeks gestation of pregnancy
CPT/HCPCS: 59025; 59050; 80053; 81001; 82565; 82570; 84156; 84450; 84460; 84550; 85025; 86703; 86762; 86780; 86803; 86850; 86900; 86901; 87081; 87340; 87491; 87591; 87653; 88307; 99221; J7120; G0378